=== PATIENT | female | born 2000 | race Caucasian/White ===

== ENCOUNTER 2025-01-27 14:57 | Emergency (ER) | payer OTHER, SELFPAY ==
[2025-01-27 15:04] VITALS: BP 141/93; PULSE 73; TEMP 36.9; O2SAT 98; BMI 25.1
--- NOTE | 2025-01-27 15:07 | ED.WOUNDLAC1 ---
HPI - Wound/Laceration General Chief Complaint: Wound/Laceration Stated Complaint: LACERATION ON RIGHT KNEE Time Seen by Provider: 01/27/25 15:06 Source: patient Mode of arrival: walk-in History of Present Illness HPI narrative: Patient is a 24-year-old female who presents to the emergency department for a laceration to the right knee. [place] and a piece of metal caught her knee. She has no other associated injuries and is able to ambulate. No medications taken prior to arrival. She does not remember her last tetanus shot. Bleeding is well-controlled at this time. She has no concern for . Related Data Previous Rx's ?Medication ?Instructions ?Recorded cephalexin 500 mg capsule 500 mg PO Q8H 7 days #21 caps 01/27/25 hydrocodone 5 mg-acetaminophen 325 1 tab PO Q6H PRN pain 3 days #12 01/27/25 mg tablet tabs ondansetron 4 mg disintegrating 4 mg PO Q6H PRN nausea and 01/27/25 tablet vomiting #12 tabs Allergies Allergy/AdvReac Type Severity Reaction Status Date / Time sulfamethoxazole (From Allergy Swelling Verified 01/27/25 15:03 Bactrim) of Lip/Tongue/Throat trimethoprim (From Bactrim) Allergy Swelling Verified 01/27/25 15:03 of Lip/Tongue/Throat Review of Systems ROS Constitutional Denies: fever or chills Ears, nose, mouth, and throat Denies: throat pain or nasal congestion Respiratory Denies: shortness of breath or cough Gastrointestinal Denies: nausea or vomiting Musculoskeletal Reports: extremity pain Integumentary/Breast Denies: rash Neurological Denies: numbness in extremities or weakness in extremities Hematologic/Lymphatic Denies: easy bruising or easy bleeding PFSH PFS Social History Little interest or pleasure in doing things: not at all Feeling down, depressed, or hopeless: not at all Exam Narrative Exam Narrative: Gen.: Awake, alert, in no distress Head: Normocephalic, atraumatic ENT: Moist mucous membranes Respiratory: No respiratory distress Extremities: Moves extremities equally, no bony tenderness of the right knee, 6 cm V-shaped laceration just inferior to the patella anteriorly. Subcutaneous tissue was exposed but there is no laceration through the subcutaneous tissue. No evidence of bony exposure and no exposure of the joint space. Bleeding is well-controlled at this time. Psych: Normal mood and affect Neuro: No focal neuro deficit Skin: Warm, dry Constitutional Vital Signs, click to edit/add: Last Vital Signs Temp 98.4 F 01/27/25 15:04 Pulse 73 01/27/25 15:04 Resp 16 01/27/25 15:04 BP 141/93 H 01/27/25 15:04 Pulse Ox 98 01/27/25 15:04 O2 Del Method Room Air 01/27/25 15:04 Course Vital Signs Vital signs: Vital Signs Temperature 98.4 F 01/27/25 15:04 Pulse Rate 73 01/27/25 15:04 Respiratory Rate 16 01/27/25 15:04 Blood Pressure 141/93 H 01/27/25 15:04 Pulse Oximetry 98 01/27/25 15:04 Oxygen Delivery Method Room Air 01/27/25 15:04 Temperature 98.4 F 01/27/25 15:04 Pulse Rate 73 01/27/25 15:04 Respiratory Rate 16 01/27/25 15:04 Blood Pressure 141/93 H 01/27/25 15:04 Pulse Oximetry 98 01/27/25 15:04 Oxygen Delivery Method Room Air 01/27/25 15:04 MDM - Wound/Laceration MDM Narrative Medical decision making narrative: X-rays obtained with no evidence of fracture or free air in the joint space. The area was cleansed, anesthetized and sutures were placed. Please see procedure note for details. Tetanus updated in the ER. Patient given wound care instructions for home. Short course of analgesics, prophylactic antibiotics and Zofran given as needed. Follow-up with PCP or urgent care for suture removal and return to the ER if symptoms change or worsen Laceration repair: Done under sterile conditions. The use of Shur-Clens prep the area. Local injection with lidocaine 1% with epi was used, approximately 10 cc. The wound was irrigated copiously with normal saline. The wound was explored there was no evidence of foreign material. The laceration was approximated with 3-0 nylon. 8 simple interrupted sutures were placed. Patient tolerated the procedure well. The patient was neurovascularly intact post. the patient had bacitracin applied to the laceration and a dry sterile dressing was place. The patient will need to follow-up in the next 10-14 days for removal SHARED APC VISIT, PHYSICIAN ATTESTATION: [id number] I performed a substantive part of the MDM during the patient?s E/M visit. I personally evaluated and examined the patient. I personally made or approved the documented management plan and acknowledge its risk of complications. Medical Records Attestation: I reviewed the patient's medical records. Imaging Data XR knee: Attestation: I have reviewed the pertinent imaging results. Discharge Plan Discharge Chief Complaint: Wound/Laceration Clinical Impression: Laceration of right knee Patient Disposition: Home, Self-Care Time of Disposition Decision: 16:02 Condition: Good Prescriptions / Home Meds: New hydrocodone-acetaminophen 5-325 mg tablet 1 tab PO Q6H PRN (Reason: pain) 3 Days Qty: 12 0RF Rx Instructions: DX: M25.561 cephalexin 500 mg capsule 500 mg PO Q8H 7 Days Qty: 21 0RF ondansetron 4 mg tablet,disintegrating 4 mg PO Q6H PRN (Reason: nausea and vomiting) Qty: 12 0RF Print Language: Macedonian Instructions: Laceration (ED) Additional Instructions: Sutures removed in 12-14 days with PCP or urgent care Referrals: Physician,Non-Staff, MD [Primary Care Provider] - 1 week
[2025-01-27] MEDS: ADACEL DIPH,PERTUSS(ACELL),TET VAC/PF 0.5 ML ADULT SYRINGE IM (15:18)
--- NOTE | 2025-01-27 15:30 | PC.NURSE ---
portable XR at bedside at this time.
[2025-01-27] MEDS: LIDOCAINE HCL 1%-EPINEPHRINE 1:100,000 20 ML MDV INJ (15:59)
[2025-01-27] MEDS: BACITRACIN OINTMENT 28.4 GM TUBE 1 APPLIC TOPICAL (15:59)
--- NOTE | 2025-01-27 17:01 | PC.NURSE ---
at approx 1550, 8 sutures placed by Kendy PENNY, pt tolerated as expected. bacitracin applied and nonstick pad over top of sutures, claudia wrap applied to R knee and short knee immobilizer applied by this time. pt verbalizes understanding of how to apply immobilizer.
== END 2025-01-27 16:15 | disposition home or self-care (01) ==
PROVIDERS: Emergency Provider Emergency Medicine
DX: S81.011A Laceration without foreign body, right knee, initial encounter (principal); W45.8XXA Other foreign body or object entering through skin, initial encounter; Z23 Encounter for immunization
CPT/HCPCS: 12002; 73564; 90471; 90715; 99284